=== PATIENT | female | born 1940 | race Caucasian/White ===

== ENCOUNTER 2017-02-12 12:00 | Day surgery (SDC) | payer MEDICARE ==
[2017-02-12] MEDS ORDERED: *PACU ONLY* KETAMINE HCL 10 MG/ML (20ML) VIAL IV ONE (14:48)
[2017-02-12] MEDS ORDERED: LIDOCAINE 2% MDV (20MG/ML) 20ML VIAL IV ONE (14:48)
[2017-02-12] MEDS ORDERED: PROPOFOL 10 MG/ML VIAL IV ONE (14:48)
[2017-02-12] MEDS ORDERED: FENTANYL PF 100MCG/2ML VIAL IV ONE (14:48)
--- NOTE | 2017-02-17 13:00 | Operative Note ---
DATE OF SURGERY: 02/12/2017 SURGEON: Rodríguez Chaparro MD OPERATION: 1. ESOPHAGOGASTRODUODENOSCOPY. 2. COLONOSCOPY. INDICATIONS: This is a 76-year-old female with a history of intermittent episodes of dysphagia who also had change in bowel habits and presented for both esophagogastroduodenoscopy and colonoscopy. POSTOPERATIVE DIAGNOSES: 1. Mild distal esophagitis with no specific strictures, status post Pena dilatation to 60 Mal[place]ian. 2. Mild gastritis. 3. Left-sided colonic diverticulosis. 4. Otherwise normal colon. ANESTHESIA: Sedation is per Anesthesia. Pulse oximetry was monitored throughout the procedures to maintain O2 saturation of 90% or greater. Supplemental oxygen was administered via nasal cannula. Cardiac and vital signs were monitored throughout the duration of the procedure, and they were stable. The procedures of esophagogastroduodenoscopy and colonoscopy and risks and benefits of the procedures, including the risk of bleeding and perforation, among others, were explained to the patient who voiced understanding and desired to have the procedures done. Physical examination was performed, and the patient was found stable for sedation. PROCEDURE: The patient was placed in the left lateral position. Sedation was initiated. A plastic bite block was inserted into the oral cavity and a lubricated Olympus GIF-180 gastroscope was then placed through the oral cavity and advanced through the stomach without any difficulty. The gastric contents were examined upon introduction of the gastroscope. There was mild distal esophagitis, but no specific strictures were noted. In the stomach, there was mild erythema along the gastric body and antrum, but no ulcers were noted. The gastroscope was then advanced to the distending duodenum without difficulty. The duodenal bulb and descending duodenal mucosa appeared normal. The gastroscope was then withdrawn into the stomach and retroflexion was performed. There were no other lesions noted. The gastroscope was then withdrawn, very carefully re-examining the gastric and esophageal mucosa and no other lesions were noted. Multiple gastric and distal esophageal biopsies were obtained. The patient remained with stable vital signs. A Pena dilator size 16-Maldivian was then passed into the stomach with minimal resistance. The Pena dilator was then withdrawn and the procedure was terminated. The patient tolerated the procedure very well without any complications. She remained with stable vital signs and was repositioned for colonoscopy. A digital rectal exam was performed and showed some mild external hemorrhoids with no palpable rectal masses. An Olympus PCF-180AL colonoscope was then inserted into the rectum under direct visualization. It was advanced to the cecum without difficulty. The ileocecal valve and appendiceal orifice were identified and photographed. The colonic mucosa was carefully examined upon introduction of the colonoscope. There were no lesions noted except for scattered diverticula in the sigmoid and descending colon. The colonoscope was then withdrawn while carefully examining the colonic mucosal surfaces. No other lesions were noted. In the rectum, retroflexion was performed and grade 1 internal hemorrhoids were noted. The colonoscope was then withdrawn and the procedures were terminated. The patient tolerated the procedure well without any immediate complications. She remained with stable vital signs and was transferred to the recovery room. RECOMMENDATIONS: 1. The patient should be on a high-fiber diet. 2. The patient is to have a repeat colonoscopy as needed. Thank you for allowing me to participate in the care of your patient. Rodríguez Chaparro MD CC: Dr. Brandon DESAI
== END 2017-02-12 13:10 | disposition home or self-care (01) ==
LOC: HOP 12:00
PROVIDERS: ATTEND Internal Medicine Gastroenterology
DX: R13.10 Dysphagia, unspecified (principal); K57.30 Diverticulosis of large intestine without perforation or abscess without bleeding; K29.70 Gastritis, unspecified, without bleeding; K20.8 Other esophagitis; K22.2 Esophageal obstruction
CPT/HCPCS: 00740; 43239; 43450; G0121

== ENCOUNTER → 2019-05-18 | Day surgery (SDC) | payer MEDICARE ==
[~2019-05-18] MED LIST: 0.9 % SODIUM CHLORIDE 1000ML 500 ML IV ONE; BRIMONIDINE TARTRATE 0.2% OPTHALMIC DROPS OP ONE; CIPROFLOXACIN HCL 0.0015 GM, PHENYLEPHRINE HCL 0.05 GM, KETOROLAC TROMETHAMINE 0.000625 GM MC ONE; EPINEPHRINE 1 MG/ML AMPUL IO ONE; LIDOCAINE 2% MDV (20MG/ML) 20ML VIAL INJ ONE; LIDOCAINE 2% MDV (20MG/ML) 20ML VIAL IV ONE; NEOM/BACI/POLY/HC 3.5 GM OPTH OINT OPTH ONE; PROPOFOL 10 MG/ML VIAL IV ONE; TETRACAINE HCL 0.5% OPTH 2ML SOLU OPTH ONE; TIMOLOL MALEATE 0.5% 5ML BTL OPTH ONE
--- NOTE | 2019-05-19 08:48 | OP NOTE CHAMES ---
DATE OF PROCEDURE: 05/18/2019 PREOPERATIVE DIAGNOSIS: Nuclear sclerotic cataract, right eye. POSTOPERATIVE DIAGNOSIS: Nuclear sclerotic cataract, right eye. OPERATION: Phacoemulsification of cataractous lens with implantation of intraocular lens. LENS IMPLANT USED: Abdon & Abdon Model PCB00 + 23.5 diopters. COMPLICATIONS: None. PROCEDURE IN DETAIL: Following a retrobulbar and facial block, the patient was prepped and draped in the usual fashion for eye surgery. A lid speculum was placed in the right eye after which a 2.4 mm tunnel wound was placed at the temporal limbus and dissected into clear cornea. A paracentesis was placed at 2 oclock hours to the left and right of the initial incision and the chamber deepened with Viscoelastic. The keratome was then used to enter the anterior chamber after which the continuous circular capsulorrhexis was accomplished without difficulty using a bent needle and a Utrata forceps. Hydrodissection and hydrodelineation of the lens was performed after which the nucleus of the lens was removed using the Phaco handpiece in the [id number] technique. The residual cortical material was irrigated and aspirated from the eye after which the bag and chamber were re-examined. The bag was re-inflated with Viscoelastic and the intraocular lens injected into the capsular bag where it centered well. The Viscoelastic was then copiously irrigated and aspirated from the eye after which the temporal tunnel wound and paracentesis were hydrated and the wounds were examined. They were noted to be watertight. The lid speculum was removed from the eye and the eye patched and shielded. The patient was transferred to the recovery room in satisfactory condition and given an appointment to be reexamined in the clinic later today or as directed by Dr. Damian. JOB NUMBER: [id number] MTDD
== END | disposition home or self-care (01) ==
LOC: SUR 06:24
PROVIDERS: ATTEND Ophthalmology
DX: H25.11 Age-related nuclear cataract, right eye (principal); I10 Essential (primary) hypertension; K21.9 Gastro-esophageal reflux disease without esophagitis; E78.00 Pure hypercholesterolemia, unspecified; R05 Cough
CPT/HCPCS: J0171; J7030

== ENCOUNTER 2019-06-01 06:48 | Day surgery (SDC) | payer MEDICARE ==
[2019-06-01] MEDS ORDERED: PROPOFOL 10 MG/ML VIAL IV ONE (06:49)
[2019-06-01] MEDS ORDERED: LIDOCAINE 2% MDV (20MG/ML) 20ML VIAL IV ONE (06:49)
[2019-06-01] MEDS ORDERED: 0.9 % SODIUM CHLORIDE 1000ML 500 ML IV ONE (07:23)
[2019-06-01] MEDS ORDERED: TETRACAINE HCL 0.5% OPTH 2ML SOLU OPTH ONE (08:46)
[2019-06-01] MEDS ORDERED: TIMOLOL MALEATE 0.5% 5ML BTL OPTH ONE (08:46)
[2019-06-01] MEDS ORDERED: BRIMONIDINE TARTRATE 0.2% OPTHALMIC DROPS OP ONE (08:46)
[2019-06-01] MEDS ORDERED: LIDOCAINE 2% MDV (20MG/ML) 20ML VIAL INJ ONE (08:46)
[2019-06-01] MEDS ORDERED: NEOM/BACI/POLY/HC 3.5 GM OPTH OINT OPTH ONE (08:46)
[2019-06-01] MEDS ORDERED: EPINEPHRINE 1 MG/ML AMPUL IO ONE (08:46)
[2019-06-01] MEDS ORDERED: CIPROFLOXACIN HCL 0.0015 GM, PHENYLEPHRINE HCL 0.05 GM, KETOROLAC TROMETHAMINE 0.000625 GM MC ONE ×5 (14:30)
--- NOTE | 2019-06-05 07:23 | OP NOTE CHAMES ---
DATE OF PROCEDURE: 06/01/2019 PREOPERATIVE DIAGNOSIS: Nuclear sclerotic cataract, left eye. POSTOPERATIVE DIAGNOSIS: Nuclear sclerotic cataract, left eye. OPERATION: Phacoemulsification of cataractous lens with implantation of intraocular lens. LENS IMPLANT USED: Abdon & Abdon Model PCB00 + 24.0 diopters. COMPLICATIONS: None. PROCEDURE IN DETAIL: Following a retrobulbar and facial block, the patient was prepped and draped in the usual fashion for eye surgery. A lid speculum was placed in the left eye after which a 2.4 mm tunnel wound was placed at the temporal limbus and dissected into clear cornea. A paracentesis was placed at 2 oclock hours to the left and right of the initial incision and the chamber deepened with Viscoelastic. The keratome was then used to enter the anterior chamber after which the continuous circular capsulorrhexis was accomplished without difficulty using a bent needle and a Utrata forceps. Hydrodissection and hydrodelineation of the lens was performed after which the nucleus of the lens was removed using the Phaco handpiece in the [id number] technique. The residual cortical material was irrigated and aspirated from the eye after which the bag and chamber were re-examined. The bag was re-inflated with Viscoelastic and the intraocular lens injected into the capsular bag where it centered well. The Viscoelastic was then copiously irrigated and aspirated from the eye after which the temporal tunnel wound and paracentesis were hydrated and the wounds were examined. They were noted to be watertight. The lid speculum was removed from the eye and the eye patched and shielded. The patient was transferred to the recovery room in satisfactory condition and given an appointment to be reexamined in the clinic later today or as directed by Dr. Damian. JOB NUMBER: [id number] MTDD
== END 2019-06-01 09:30 | disposition home or self-care (01) ==
LOC: SUR 06:48
PROVIDERS: ATTEND Ophthalmology
DX: H25.12 Age-related nuclear cataract, left eye (principal); I10 Essential (primary) hypertension; K21.9 Gastro-esophageal reflux disease without esophagitis; E78.00 Pure hypercholesterolemia, unspecified
CPT/HCPCS: J0171; J7030